=== PATIENT | male | born 2000 | race Caucasian/White ===

== ENCOUNTER 2019-11-12 16:47 | Emergency (ER) | payer OTHER ==
[~2019-11-12] VITALS: Ht 170.2 cm; Wt 62.0 kg
[2019-11-12] MEDS ORDERED: albuterol inhaler (16:53)
[2019-11-12 18:03] LABS: HEMATOCRIT 45.2 % (42.0-52.0); HEMOGLOBIN 15.5 g/dl (13.5-17.5); MEAN CORPUSCULAR HEMOGLOBIN 30.3 pg (27.0-33.0); MEAN CORPUSCULAR HGB CONC 34.3 g/dl (32.0-36.5); MEAN CORPUSCULAR VOLUME 88.3 fl (80.0-96.0); PLATELET COUNT, AUTOMATED 326 10^3/uL (150-450); RED BLOOD COUNT 5.12 10^6/uL (4.30-6.10); WHITE BLOOD COUNT 11.3 10^3/uL (4.0-10.0)
[2019-11-12 18:14] LABS: AMPHETAMINES LEVEL URINE NEGATIVE (NEGATIVE); BARBITURATES URINE NEGATIVE (NEGATIVE); BENZODIAZEPINES URINE NEGATIVE (NEGATIVE); CANNABINOIDS URINE NEGATIVE (NEGATIVE); COCAINE METABOLITE URINE NEGATIVE (NEGATIVE); METHADONE URINE NEGATIVE (NEGATIVE); OPIATES URINE NEGATIVE (NEGATIVE); PHENCYCLIDINE URINE NEGATIVE (NEGATIVE)
[2019-11-12 18:27] LABS: ACETAMINOPHEN LEVEL < 2.0 UG/ML (10.0-30.0); ALBUMIN 4.2 GM/DL (3.2-5.2); ALT/SGPT 24 U/L (12-78); BILIRUBIN,DIRECT 0.1 MG/DL (0.0-0.2); BILIRUBIN,TOTAL 0.6 MG/DL (0.2-1.0); BLOOD UREA NITROGEN 10 MG/DL (7-18); CALCIUM LEVEL 8.9 MG/DL (8.5-10.1); CARBON DIOXIDE LEVEL 31 MEQ/L (21-32); CHLORIDE LEVEL 105 MEQ/L (98-107); CREATININE FOR GFR 0.89 MG/DL (0.70-1.30); ETHYL ALCOHOL (ETHANOL) < 0.003 % (0.000-0.010); GLUCOSE, FASTING 88 MG/DL (70-100); POTASSIUM SERUM 4.1 MEQ/L (3.5-5.1); SALICYLATE LEVEL < 1.7 MG/DL (5.0-30.0); SODIUM LEVEL 140 MEQ/L (136-145); THYROID STIMULATING HORMONE 0.879 uIU/ML (0.463-3.98); TOTAL PROTEIN 7.4 GM/DL (6.4-8.2)
[2019-11-12] MEDS ORDERED: VENTAER INH (20:30)
[2019-11-13 05:35] VITALS: BP 117/66
--- NOTE | 2019-11-13 07:11 | ECGEPIP ---
[facility] - ED Test Date: 2019-11-12 Pat Name: AGUSTIN LYLES Department: Room: - Gender: Male Mobile Architect: GRACIELA : 2000 Requested By: ANGIE ROY Order Number: [id number] Reading MD: Robin Mcdermott Measurements Intervals Lawn Rate: 66 P: 77 WY: 221 QRS: 89 QRSD: 90 T: 55 QT: 388 QTc: 409 Interpretive Statements SINUS RHYTHM WITH SINUS ARRHYTHMIA WITH FIRST DEGREE AV BLOCK NO PRIORS FOR COMPARISON Electronically Signed on 11-13-2019 7:10:48 EST by Robin Mcdermott
== END 2019-11-13 05:36 ==
LOC: M ED 16:47
DX: F32.9 Major depressive disorder, single episode, unspecified (principal); R45.851 Suicidal ideations; I44.0 Atrioventricular block, first degree
CPT/HCPCS: 80048; 80076; 80307; 84443; 85027; 93005; 99284; G0480